=== PATIENT | female | born 1985 | race Caucasian/White ===

== ENCOUNTER 2020-01-06 23:18 | Emergency (ER) | payer OTHER ==
[~2020-01-06] VITALS: Ht 157.5 cm; Wt 98.4 kg
[2020-01-06 23:24] VITALS: Ht 157.5 cm; Wt 98.4 kg
[2020-01-07 00:04] VITALS: BP 162/87
== END 2020-01-07 00:04 | disposition home or self-care (01) ==
LOC: ED 23:18
DX: S60.221A Contusion of right hand, initial encounter (principal); S39.012A Strain of muscle, fascia and tendon of lower back, initial encounter; V49.9XXA Car occupant (driver) (passenger) injured in unspecified traffic accident, initial encounter; Y93.I9 Activity, other involving external motion; Y92.413 State road as the place of occurrence of the external cause; Y99.8 Other external cause status
CPT/HCPCS: J1885